=== PATIENT | female | born 1945 | race Caucasian/White ===

== ENCOUNTER → 2017-01-17 | Outpatient (CLI) | payer OTHER ==
[~2017-01-17] MED LIST: ACETAMINOPHEN325 MG PO; ADVAIR 1001 DISK W/D PO; ADVAIR 250-501 EACH IH; ALLEGRA PO; ASPIRIN PO; CLARITIN10 M3 PO; LIPITOR PO; MAXIDEX5 ML OP; MAXZIDE 75/50 T1 TAB PO; MAXZIDE-25MG TA1 TAB PO; NEXIUM PO; OMEGA-31000 M1 PO; OMEPRAZOLE20 M1 PO; OTC ACID REFLUX MED; POTASSIUM99 M1 PO; PREMARIN PO; PRILOSEC20 M1 PO; RANITIDINE HCL150 M1 PO; TOPROL XL PO; TRIAMTERENE-HC1 EACH PO; VITAMIN D400 UNI1 PO
--- NOTE | ~2017-01-17 | CR170 ---
[facility] A Service of [facility] & [facility] RADIOLOGY TEXT RESULTS PATIENT: NICOLE NEAL LOCATION: [facility] : 45 UNIT #: [id number] AGE: [address]: Quentin Bryant MD SEX: F ORDER DR: [id number] [facility] [address] [place], [place] [address] [id number] MR#: [id number] Acc #: [id number] NAME: NICOLE NEAL : 1945 SEX: F STUDY DATE/TIME: 01/17/2017 14:44 UNIT: [facility] ROOM: STUDY DESCRIPTION: CR Knee 2 Views Rt Attending Physician: Quentin Bryant M.D. Referring Physician: Quentin Bryant M.D. Ordering Physician: Quentin Bryant M.D. Primary Care Physician: Miguel Tarango M.D. MEDICAL IMAGING REPORT This report is preliminary unless electronic signature is present EXAM Right knee 2 views INDICATIONS 71-year-old female with right knee pain for 1 month. COMPARISON STUDIES No comparisons. FINDINGS No fracture or joint effusion. Normal alignment. Joint spaces are preserved. IMPRESSION Negative. Dictated by... Georgi Shaw M.D. THIS IS AN ELECTRONICALLY VERIFIED REPORT Georgi Shaw M.D. at 01/18/2017 10:02 AM DAVID/yonatan TD: 01/17/2017 17:42 JOB #: [id number] MEDICAL IMAGING REPORT Page 1 of 1 COPY
== END | disposition home or self-care (01) ==
LOC: CRAD 14:33
DX: M25.561 Pain in right knee (principal)
CPT/HCPCS: 73560